=== PATIENT | female | born 1985 | race Caucasian/White ===

== ENCOUNTER 2016-12-19 00:08 | Emergency (ER) | payer SELFPAY ==
[~2016-12-19] VITALS: Ht 175.3 cm; Wt 90.0 kg
[2016-12-19 00:13] VITALS: BP 126/87; PULSE 115; RESP 18; TEMP 98.7; O2SAT 99
[2016-12-19] MEDS ORDERED: CYMB30CA PO (00:15)
[2016-12-19] MEDS ORDERED: oxyCODONE/ACETAMINOPHEN 5 MG/325 MG TAB PO ONE (00:15)
[2016-12-19] MEDS ORDERED: IBUP800T23 PO (00:17)
[2016-12-19] MEDS ORDERED: NORC5TAB PO (00:17)
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
[2016-12-19] MEDS ORDERED: ONDANSETRON ODT 4 MG TAB PO ONE (00:30)
--- NOTE | 2016-12-19 01:12 | RADRPT ---
EXAM DATE/TIME: 12/19/2016 00:46 [facility] COMPARISON: No previous studies available for comparison. INDICATIONS : Right side pain post fall. MEDICAL HISTORY : None. SURGICAL HISTORY : None. ENCOUNTER: Initial ACUITY: 1 day PAIN SCORE: 10/10 LOCATION: Right chest FINDINGS: Multiple views of the right ribs were performed. There is no evidence of displaced fracture. No josefina tructive lesions or areas of periosteal thickening are seen. Expiratory view of the chest is negativ e for pneumothorax. The mediastinal structures are midline. CONCLUSION: No acute rib fracture. Kwabena Cunha MD on December 19, 2016 at 1:09 Board Certified Radiologist. This report was verified electronically.
--- NOTE | 2016-12-19 01:50 | PD ---
Physical Exam Date Seen by Provider: Dec 19, 2016 Time Seen by Provider: 01:48 Data Data Last Documented VS Vital Signs Date Time Temp Pulse Resp B/P Pulse Ox O2 Delivery O2 Flow Rate FiO2 12/19/16 00:13 98.7 115 18 126/87 99 Room Air Orders Ribs, Uni (W/Exp Cxr-Min 3vw) (12/19/16 00:11) Oxycodone-Acetamin 5-325 Mg (Percocet (12/19/16 00:15) Ondansetron Odt (Zofran Odt) (12/19/16 00:30) MDM Medical Record Reviewed: Yes Supervised Visit with VANESSA: Yes Interpretation(s) Last 24 hours Impressions Ribs X-Ray 12/19/16 0011 Signed Impressions: Service Date/Time: Monday, December 19, 2016 00:46 - CONCLUSION: No acute rib fracture. Kwabena Cunha MD Differential Diagnosis MDM: High Differential diagnoses: Fracture, sprain, strain, dislocation, contusion, neurovascular injury Narrative Course X-rays are negative for bony injury. This is chest wall contusion Diagnosis Primary Impression: Chest wall contusion Qualified Code: S20.219A - Chest wall contusion, unspecified laterality, initial encounter Patient Instructions: General Instructions, Rib Contusion (ED) Departure Forms: Tests/Procedures Additional Instruction: Rest. Ice for the next 3 days followed by heat . Medications as directed. Follow-up with a primary care doctor in one week. Return to the ER for emergencies. Med/Other Pt SpecificInfo: Prescription(s) given Scripts Ibuprofen 800 Mg [id number] Mg PO Q8H PRN (Pain/Inflammation) #60 TAB Ref 0 Prov:Erika Gross MD 12/19/16 Hydrocodone-Acetaminophen ([place])5-325 mg Tab1 Tab PO Q4H PRN (PAIN) #12 TAB Ref 0 Prov:Erika Gross MD 12/19/16 Disposition: [address] LAW ENFORCEMNT Condition: Stable Raymond Moreno Dec 19, 2016 01:50
== END 2016-12-19 02:00 ==
LOC: NEPD 00:08
DX: S20.219A Contusion of unspecified front wall of thorax, initial encounter (principal); Y04.2XXA Assault by strike against or bumped into by another person, initial encounter
CPT/HCPCS: 71101; 99283